=== PATIENT | male | born 1990 | race Caucasian/White ===

== ENCOUNTER 2024-04-05 16:29 | Emergency (ER) | payer MEDICAID ==
[~2024-04-05] VITALS: Ht 175.3 cm; Wt 62.7 kg
[2024-04-05] MEDS ORDERED: SULF1TAB49 PO (17:13)
[2024-04-05] MEDS: sulfamethoxazole/trimethoprim DS (800/160mg) tablet PO ONE (17:27)
[2024-04-05] MEDS: TETanus/Pertussis (Acell)/Diphther VAC/PF (Tdap-Adult) 0.5ml syringe IMVAC ONE (17:28)
[2024-04-05] MEDS: LIDOcaine 1% W/epiNEPHrine 1:100,000 20ml vial IJ ONE (17:37)
[2024-04-05 18:04] VITALS: BP 122/78; PULSE 68; RESP 17; TEMP 98.8; O2SAT 98
== END 2024-04-05 18:04 | disposition home or self-care (01) ==
LOC: ER 16:30
DX: L02.413 Cutaneous abscess of right upper limb (principal); M79.89 Other specified soft tissue disorders; Z79.899 Other long term (current) drug therapy
CPT/HCPCS: 10060; 90471; 90715; 99283; A6449